=== PATIENT | female | born 1935 | race Caucasian/White ===

== ENCOUNTER 2017-02-16 20:06 | Emergency (ER) | payer OTHER ==
--- NOTE | ~2017-02-16 | CT71 ---
[facility] A Service of [facility] & [facility] RADIOLOGY TEXT RESULTS PATIENT: OMARI CONCEPCION LOCATION: [facility] : 34 UNIT #: [id number] AGE: [address]: Pedro Pablo Aggarwal MD SEX: F ORDER DR: [id number] [facility] [address] [place], [place] [address] [id number] E MR#: [id number] Acc #: [id number] NAME: OMARI CONCEPCION : 1935 SEX: F STUDY DATE/TIME: 02/16/2017 18:57 UNIT: [facility] ROOM: STUDY DESCRIPTION: CT Head Wo Contrast Attending Physician: Pedro Pablo Aggarwal M.D. Ordering Physician: Pedro Pablo Aggarwal M.D. Primary Care Physician: Lilia Calles Aprn [facility] MEDICAL IMAGING REPORT This report is preliminary unless electronic signature is present EXAM CT of the head, 02/16/2017 HISTORY Fall today 02/16/2017, right side head pain radiating down into neck. This CT exam was performed with one or more of the following radiation dose reduction techniques: automatic exposure control, adjustment of mA and/or kV according to patient size, and iterative reconstruction. FINDINGS CT head performed skull base through vertex without intravenous contrast. Comparison 06/09/2015. No intracranial hemorrhage or evidence of acute cortical ischemia. Extensive subcortical periventricular and deep white matter tract hypodensities likely reflecting sequelae of chronic microvascular ischemia. Similar appearance on prior examination. Midline structures are nondisplaced. No acute appearing basal ganglia abnormality. Ventricles, cisterns and sulci show mild to moderate generalized enlargement, slightly more pronounced than on the prior examination and consistent with generalized atrophy. No intra or extraaxial mass effect or abnormal intracranial fluid collection. Intraorbital soft tissues are unremarkable. Cavernous carotid arterial calcifications. Visualized paranasal sinuses and mastoid air cells are clear. No fracture. IMPRESSION 1. No acute abnormality seen in the brain. If the patient has ongoing neurologic symptoms, consider followup imaging. 2. Mild to moderate generalized atrophy. Slightly more pronounced than in 2014. 3. Periventricular and deep white matter tract probable sequelae of [facility] A Service of [facility] & [facility] RADIOLOGY TEXT RESULTS PATIENT: OMARI CONCEPCION LOCATION: [facility] #: [id number] : 34 UNIT #: [id number] AGE: [address]: Pedro Pablo Aggarwal MD SEX: F ORDER DR: chronic microvascular ischemia. Similar appearance on prior study. 4. Vascular calcifications. 5. No fracture. Dictated by... Kamaljit Krishnamurthy M.D. THIS IS AN ELECTRONICALLY VERIFIED REPORT Kamaljit Krishnamurthy M.D. at 02/17/2017 6:48 PM GIOVANA/jovon TD: 02/16/2017 23:15 JOB #: [id number] MEDICAL IMAGING REPORT Page 1 of 1 COPY
--- NOTE | ~2017-02-16 | CT52 ---
[facility] A Service of [facility] RADIOLOGY TEXT RESULTS PATIENT: OMARI CONCEPCION LOCATION: [facility] : 34 UNIT #: [id number] AGE: [address]: Pedro Pablo Aggarwal MD SEX: F ORDER DR: [id number] [facility] [address] [place], [place] [address] [id number] E MR#: [id number] Acc #: [id number] NAME: OMARI CONCEPCION : 1935 SEX: F STUDY DATE/TIME: 02/16/2017 18:59 UNIT: [facility] ROOM: STUDY DESCRIPTION: CT Cervical Spine Wo Cont Attending Physician: Pedro Pablo Aggarwal M.D. Ordering Physician: Pedro Pablo Aggarwal M.D. MEDICAL IMAGING REPORT This report is preliminary unless electronic signature is present EXAM CT cervical spine without contrast 02/16/2017 HISTORY 81-year-old female with neck pain status post fall today. COMPARISON STUDIES CT cervical spine 06/09/2015. TECHNIQUE Helical scan performed through the cervical spine without IV contrast. Coronal and sagittal reformatted images. This CT exam was performed with one or more of the following radiation dose reduction techniques: automatic exposure control, adjustment of mA and/or kV according to patient size, and iterative reconstruction. FINDINGS No evidence of acute fracture. There is mild degenerative anterolisthesis of C3 on C4 and C4 on C5, unchanged from the prior exam. Moderately advanced multilevel degenerative disc changes noted at C3-C4, C4-C5, C5-C6, C6-C7. Moderately advanced multilevel facet arthropathy. The findings are unchanged from prior examination. This produces mild central canal stenosis at multiple levels. Prevertebral soft tissues are normal. Atlantoaxial relationship is within normal limits. Cervicothoracic junction is unremarkable. Paravertebral soft tissues are unremarkable. Scanning through the lung apices is unremarkable. IMPRESSION 1. No acute cervical spine injury. 2. Advanced multilevel degenerative changes, detailed above. Findings not significantly changed from 06/09/2015. [facility] A Service of [facility] RADIOLOGY TEXT RESULTS PATIENT: OMARI CONCEPCION LOCATION: [facility] #: [id number] : 34 UNIT #: [id number] AGE: [address]: Pedro Pablo Aggarwal MD SEX: F ORDER DR: Dictated by... Solomon De La Fuente M.D. THIS IS AN ELECTRONICALLY VERIFIED REPORT Solomon De La Fuente M.D. at 02/17/2017 4:27 PM THOMAS/xiomara TD: 02/16/2017 22:59 JOB #: [id number] MEDICAL IMAGING REPORT Page 1 of 1 COPY
[~2017-02-16 20:06] MED LIST: ACETAMINOPHEN500 M2 PO; ALBUTEROL MININEB NEB; ALDACTONE PO; ALDACTONE25 MG PO; ALENDRONATE SOD70 MG PO; ALL DAY ALLERGY10 M3 PO; ALL DAY ALLERGY10 MG PO; ALLERGY10 M2 PO; ANTIVERT PO; ASPIRIN81 M2 PO; ASPIRIN81 MG PO; ATIVAN PO; B-121000 MC1 PO; B12 5,000 MCG1 EACH PO; BETAPACE80 MG PO; CALCIUM 600+D1 EAC4 PO; COUMADIN PO; COUMADIN10 MG PO; COUMADIN5 MG PO; CRESTOR PO; DILANTIN KAPSE100 MG PO; EXCEDRIN EXTRA1 TAB PO; FISH OIL 1,0001 CAP PO; FLONASE 0.05% N16 G1 INH; FLOVENT DI50 MCG/DIS INH; FOSAMAX PO; FUROSEMIDE40 MG PO; GABAPENTIN300 M2 PO; GABAPENTIN300 MG PO; HEART PILL; HYDROCODON-ACE1 EACH PO; IMDUR-ER60 M3 PO; IMDUR30 MG PO; IRON SUPPLEMENT1 TAB PO; KEPPRA500 M1 PO; KEPPRA500 M2 PO; LASIX PO; LASIX20 MG PO; LEVOTHROID100 MC1 PO; LEVOTHROID150 MCG PO; LEVOXYL150 MCG PO; LIPITOR40 MG PO; LOPRESSOR PO; LOPRESSOR100 MG PO; LORAZEPAM1 MG PO; MAG-OX 400400 M1 PO; METOPROLOL TAR100 MG PO; NEURONTIN PO; NIACIN500 M1 PO; NIASPAN1000 MG PO; NITROGLYCERIN0.4 MG SL; NITROSTAT0.4 MG SL; NORVASC2.5 MG PO; OMEPRAZOLE20 M2 PO; PHENYTOIN SODI100 M4 PO; PREDNISONE PO; PRILOSEC20 MG PO; REMERON15 MG PO; REQUIP0.5 MG PO; SENNA8.6 M2 PO; SORINE80 MG; SOTALOL AF80 MG PO; SYNTHROID PO; SYNTHROID0.15 MG PO; TOPAMAX PO; TOPAMAX50 MG PO; TRIAMCINOLONE AC1 GM EXT; VITAMIN B-121000 MCG PO; VITAMIN D50000 UNIT PO; ZOLOFT100 MG PO; ZOLOFT50 MG PO
== END 2017-02-16 20:53 | disposition home or self-care (01) ==
LOC: CED 20:06
DX: S09.90XA Unspecified injury of head, initial encounter (principal); I10 Essential (primary) hypertension; Z79.82 Long term (current) use of aspirin; Z79.899 Other long term (current) drug therapy; Z88.1 Allergy status to other antibiotic agents; W07.XXXA Fall from chair, initial encounter; Y92.009 Unspecified place in unspecified non-institutional (private) residence as the place of occurrence of the external cause
CPT/HCPCS: 70450; 72125; 99284

== ENCOUNTER 2017-05-03 14:10 | Emergency (ER) | payer OTHER ==
--- NOTE | ~2017-05-03 | CR71 ---
[facility] A Service of [facility] RADIOLOGY TEXT RESULTS PATIENT: OMARI CONCEPCION LOCATION: SED : 34 UNIT #: [id number] AGE: [address]: Rufino Esteves MD SEX: F ORDER DR: [id number] [address] [address] [id number] E MR#: [id number] Acc #: [id number] NAME: OMARI CONCEPCION : 1935 SEX: F STUDY DATE/TIME: 05/03/2017 15:00 UNIT: SED ROOM: STUDY DESCRIPTION: CR Chest Single View Attending Physician: Rufino Esteves M.D. Ordering Physician: Rufino Esteves M.D. Primary Care Physician: No Primary Care Physician MEDICAL IMAGING REPORT This report is preliminary unless electronic signature is present. EXAM AP view of the chest COMPARISON Two views of the chest dated June 09, 2015, March 23, 2015 and March 22, 2015. INDICATIONS An 81-year-old female with history of hypertension, CHF and COPD requiring oxygen. Patient fell at home yesterday. FINDINGS Allowing for differences in AP and PA technique, cardiomediastinal silhouette is likely stable with stable cardiomegaly. There is stable band-like scarring versus atelectasis or possibly trace loculated pleural effusion within the minor fissure. Changes of CABG again noted. No evidence of sternotomy dehiscence. There is tortuosity and/or folding of the thoracic aorta which appears grossly stable. There is mild calcification of the thoracic aorta. No evidence of pneumothorax, pleural effusion, acute airspace disease or pulmonary edema. Multiple healed right-sided rib fractures are again noted. Calcified granulomas in the right lung. . IMPRESSION 1. No acute radiographic abnormality of the chest. There is cardiomegaly without pulmonary edema or pleural effusion. 2. There is stable band-like atelectasis versus scar or possibly trace fluid within the minor fissure. Dictated by... Chung Bartlett M.D. [facility] A Service of [facility] RADIOLOGY TEXT RESULTS PATIENT: OMARI CONCEPCION LOCATION: SED : 34 UNIT #: [id number] AGE: [address]: Rufino Esteves MD SEX: F ORDER DR: THIS IS AN ELECTRONICALLY VERIFIED REPORT Chung Bartlett M.D. at 05/08/2017 1:56 PM JOSE/mele TD: 05/03/2017 22:26 JOB #: [id number] MEDICAL IMAGING REPORT Page 1 of 1
--- NOTE | ~2017-05-03 | CR206 ---
[facility] A Service of [facility] RADIOLOGY TEXT RESULTS PATIENT: OMARI CONCEPCION LOCATION: SED : 34 UNIT #: [id number] AGE: [address]: Rufino Esteves MD SEX: F ORDER DR: [id number] [address] [address] [id number] E MR#: [id number] Acc #: [id number] NAME: OMARI CONCEPCION : 1935 SEX: F STUDY DATE/TIME: 05/03/2017 15:00 UNIT: SED ROOM: STUDY DESCRIPTION: CR Pelvis 1 or 2 Views Attending Physician: Rufino Esteves M.D. Ordering Physician: Rufino Esteves M.D. Primary Care Physician: Primary Care Physician No MEDICAL IMAGING REPORT This report is preliminary unless electronic signature is present. EXAM AP view of the pelvis. COMPARISON CT abdomen and pelvis dated March 19, 2015. INDICATIONS 81-year-old female with tailbone pain after falling last night in the bathroom. FINDINGS Surgical clips are seen in the pelvis. There are bilateral pelvic calcifications most in keeping with phleboliths. Evaluation of the sacrum is markedly limited by overlapping bowel gas and stool. Similarly, the coccyx is limited in evaluation. Arterial calcification seen in the proximal thighs. Degenerative facet disease at L4-L5, more prominent on the right. IMPRESSION No evidence of acute fracture of the pelvis is seen. Please note that evaluation of the sacrum and coccyx is nondiagnostic due to overlapping bowel gas and stool. Lateral view of the sacrum and coccyx may be helpful, if clinically indicated. Dictated by... Chung Bartlett M.D. THIS IS AN ELECTRONICALLY VERIFIED REPORT Chung Bartlett M.D. at 05/08/2017 1:49 PM [facility] A Service of [facility] RADIOLOGY TEXT RESULTS PATIENT: OMARI CONCEPCION LOCATION: SED : 34 UNIT #: [id number] AGE: [address]: Rufino Esteves MD SEX: F ORDER DR: TD: 05/03/2017 22:30 JOB #: [id number] MEDICAL IMAGING REPORT Page 1 of 1
--- NOTE | ~2017-05-03 | CT71 ---
[facility] A Service [facility] RADIOLOGY TEXT RESULTS PATIENT: OMARI CONCEPCION LOCATION: SED : 34 UNIT #: [id number] AGE: [address]: Rufino Esteves MD SEX: F ORDER DR: [id number] [address] [address] [id number] E MR#: [id number] Acc #: [id number] NAME: OMARI CONCEPCION : 1935 SEX: F STUDY DATE/TIME: 05/03/2017 14:56 UNIT: SED ROOM: STUDY DESCRIPTION: CT Head Wo Contrast Attending Physician: Rfuino Esteves M.D. Ordering Physician: Rufino Esteves M.D. Primary Care Physician: No Primary Care Physician MEDICAL IMAGING REPORT This report is preliminary unless electronic signature is present. EXAM CT scan of the head without contrast. INDICATIONS Fall last night with head trauma. Patient fell in bathroom. Patient has bruising and swelling in that region. Evaluate for bleed. COMPARISON 02/16/2017 TECHNIQUE Unenhanced images were obtained through the brain. This CT exam was performed with one or more of the following radiation dose reduction techniques: automatic exposure control, adjustment of mA and/or kV according to patient size, and iterative reconstruction. FINDINGS There is generalized atrophy. There are no masses or extraaxial fluid collections. There is a small scalp hematoma in the right frontal region measuring less than a centimeter in thickness. There is no fracture. IMPRESSION 1. Small right frontal scalp hematoma. 2. Generalized atrophy. 3. Otherwise, normal. Dictated by... Gera Denny M.D. THIS IS AN ELECTRONICALLY VERIFIED REPORT [facility] A Service [facility] RADIOLOGY TEXT RESULTS PATIENT: OMARI CONCEPCION LOCATION: SED : 34 UNIT #: [id number] AGE: [address]: Ruifno Esteves MD SEX: F ORDER DR: Gera Denny M.D. at 05/04/2017 7:37 AM Kelsy TD: 05/03/2017 22:20 JOB #: [id number] MEDICAL IMAGING REPORT Page 1 of 1
--- NOTE | ~2017-05-03 | EKG ---
PATIENT: OMARI CONCEPCION UNIT #: [id number] Ventricular Rate: 66 BPM Atrial Rate: 66 BPM P-R Interval: 252 ms QRS Duration: 172 ms Q-T Interval: 450 ms QTC Calculation(Bezet): 471 ms P Graff: 51 degrees Calculated R Graff: -89 degrees Calculated T Graff: 25 degrees Diagnosis Line: Sinus rhythm with 1st degree A-V block Diagnosis Line: Possible Left atrial enlargement Diagnosis Line: Left axis deviation Diagnosis Line: Right bundle branch block Diagnosis Line: Abnormal ECG Diagnosis Line: When compared with ECG of 09-JUN-2015 23:13, Diagnosis Line: No significant change was found Diagnosis Line: Confirmed by LETA MAR MD ([id number]) on Diagnosis Line: 05/04/2017 12:56:42 PM INTERPRETING MD: ISABELA ZACARIAS
[2017-05-03 14:41] LABS: POC - CKMB 2.1 ng/mL (0.0-7.9)
[2017-05-03 14:42] LABS: POC - TROPONIN <0.05 ng/mL (<=0.05)
[2017-05-03 14:53] LABS: URINE SOURCE CLEAN CATCH
[2017-05-03 14:54] LABS: BASOPHIL% 0.7 % (0-2.5); EOSINOPHIL# 0.2 X10e3 (0-0.7); EOSINOPHIL% 2.8 % (0.0-7.0); HEMATOCRIT 41.3 % (35.0-45.0); HEMOGLOBIN 13.8 gm/dL (12.0-16.0); LYMPHOCYTE% 14.9 % (17.0-45.0); MEAN CELL VOLUME 82.8 FL (83-96); MEAN CORPUSCULAR HEMOGLOBIN 27.7 PG (28-34); MEAN CORPUSCULAR HGB CONC 33.5 g/dL (30-36); MEAN PLATELET VOLUME 7.1 FL (6.5-11.5); MONOCYTE# 0.6 X10e3 (0-1.0); MONOCYTE% 8.3 % (3.0-12.0); NEUTROPHIL% 73.3 % (40-75); PLATELET COUNT 228 X10e3 (140-420); RED BLOOD COUNT 4.99 X10e (3.90-5.30); RED CELL DISTRIBUTION WIDTH 14.9 % (11.0-15.5); WHITE BLOOD COUNT 6.9 X10e3 (4.0-10.5)
[2017-05-03 14:55] LABS: URINE APPEARANCE CLEAR; URINE BILIRUBIN NEG (NEG); URINE BLOOD NEG (NEG); URINE COLOR YELLOW; URINE GLUCOSE NEG (NORM); URINE KETONE NEG (NEG); URINE LEUKOCYTE ESTERASE 1+ (NEG); URINE NITRATE NEG (NEG); URINE PROTEIN NEG (NEG); URINE UROBILINOGEN 0.2 MG/DL (NORM)
[2017-05-03 14:57] LABS: DIFF IND NO
[2017-05-03 14:58] LABS: MICRO INDICATED? YES
[2017-05-03 15:04] LABS: ALBUMIN SERUM 4.4 g/dL (3.5-5.0); ALKALINE PHOSPHATASE 63 U/L (32-92); ALT (SGPT) 14 U/L (10-40); AST (SGOT) 21 U/L (10-42); BILIRUBIN,TOTAL 0.4 mg/dL (0.2-2.0); BLOOD UREA NITROGEN 14 mg/dL (9-23); CALCIUM SERUM 8.6 mg/dL (8.4-10.2); CARBON DIOXIDE 32 mmol/L (22-31); CHLORIDE 92 mmol/L (100-111); CREATININE SERUM 0.7 mg/dL (0.6-1.4); GLOM FILT RATE Estimated 80.7 mL/min (>60); GLUCOSE FASTING 71 mg/dL (70-110); POTASSIUM 3.8 mmol/L (3.5-5.1); PROTEIN TOTAL SERUM 7.2 g/dL (6.0-8.3); SODIUM 130 mmol/L (135-145)
[2017-05-03 15:12] LABS: BILIRUBIN, DIRECT <0.1 mg/dL (0.0-0.2); BILIRUBIN,INDIRECT 0.3 mg/dL (0.0-0.9)
[2017-05-03 15:24] LABS: CULTURE INDICATED? NO; URINE BACTERIA NEG (NEG); URINE RBC 0-2 /[HPF] (0-2); URINE WBC 0-2 /[HPF] (0-5)
== END 2017-05-03 16:33 | disposition home or self-care (01) ==
LOC: SED 14:10
PROVIDERS: Emergency Medicine
DX: S00.83XA Contusion of other part of head, initial encounter (principal); Z79.899 Other long term (current) drug therapy; Z79.82 Long term (current) use of aspirin; Z88.1 Allergy status to other antibiotic agents; W19.XXXA Unspecified fall, initial encounter; Y92.009 Unspecified place in unspecified non-institutional (private) residence as the place of occurrence of the external cause
CPT/HCPCS: 36415; 70450; 71010; 72170; 80048; 80076; 81003; 82553; 84484; 85025; 93005; 99284

== ENCOUNTER 2017-05-09 11:16 | Inpatient (IN) | payer OTHER ==
[~2017-05-09] VITALS: Ht 167.6 cm; Wt 61.2 kg
--- NOTE | ~2017-05-09 | DS ---
Unit #: [id number] #: [id number] Patient: OMARI CONCEPCION [id number] [address] [address] [id number] I MR#: [id number] NAME: OMARI CONCEPCION ROOM: 301 Age: 81 Sex: F Admission Date: 05/09/2017 : 1935 Discharge Date: 05/12/2017 Attending Physician: Lonnie Jeffries M.D. Primary Care Physician: No Primary Care Physician DISCHARGE SUMMARY ADMISSION DIAGNOSES 1. Weakness. 2. Recurrent falls. 3. Hyponatremia. DISCHARGE DIAGNOSES 1. Falls, questionable etiology. 2. Encephalopathy. 3. Hyponatremia with slow improvement. 4. Hypothyroidism. Medication dosage adjusted. Patient needs repeat thyroid profile in four to six weeks. DIAGNOSTIC STUDIES LABORATORY: WBC 9.3, hemoglobin 13.2, hematocrit 39.0, platelets 278,000. Sodium 132, potassium 4.7, chloride 87, CO2 39, glucose 136, BUN 12, creatinine 0.7, calcium 8.8, B12 1097, TSH 31.18, magnesium 1.5. IMAGING: Lumbar spine series, impression: Multilevel degenerative disc disease and facet arthropathy unchanged from CT 03/19/2015. Mild scalloping or depression of the superior endplate of L2, also unchanged and chronic. No acute fracture seen. Patient one view, impression: Underlying osteopenia with no definite pelvic or hip fracture seen. Chest with bilateral rib film, impression: CABG change with cardiomegaly, tortuous ectatic aorta. Slight decrease in bibasilar density, likely improving atelectasis in the lungs with no definite effusion or pneumothorax. No definite left rib fractures with an additional anterior to anterolateral subacute right seventh fracture with some with some callous formation. This is displaced and not clearly healed; however, subacute and older than five days old. Thoracic spine series, impression: Moderate compression deformity at T8, which is old. More subtle compression of the superior endplates of T3, T4, T6 and T7 of indeterminate age. No malalignment. CARDIOVASCULAR: Twelve-lead EKG; sinus rhythm with first degree AV block, possible left atrial enlargement, left axis deviation, right bundle-branch block. CONDITION Stable. Unit #: [id number] #: [id number] Patient: OMARI CONCEPCION DISPOSITION [facility]. DISCHARGE MEDICATIONS 1. Levothyroxine 0.1 mg p.o. daily q.a.m. 2. Imdur ER 60 mg p.o. q.a.m. 3. Nitroglycerin 0.4 mg sublingual q.5 minutes x3 p.r.n. chest pain. 4. Vitamin B12 1000 mcg p.o. daily. 5. Lopressor 100 mg p.o. b.i.d. 6. Furosemide 20 mg p.o. daily. 7. Alendronate sodium 70 mg p.o. weekly on Sundays. 8. Lortab 7.5/325 one p.o. q.6 h. p.r.n. moderate pain. Prescription written by Dr. Rodriguez, #20, no refills. 9. Prilosec 20 mg p.o. b.i.d. 10. Calcium carbonate 500 mg tab one p.o. daily. 11. Neurontin 300 mg p.o. daily. 12. Zoloft 100 mg p.o. daily. 13. Cetirizine hydrochloride capsule 10 mg p.o. q.a.m. DIET Healthy heart. DISCHARGE INSTRUCTIONS 1. Patient will be discharged to [facility] rehab. 2. She is to call and schedule a followup appointment with her primary physician for 7 to 10 days after discharge from the rehab facility. 3. She is to have a CBC, BMP and magnesium level drawn in the a.m. of 05/13/17 with any abnormal results called to the rehab physician at [facility] for further orders. HISTORY OF PRESENT ILLNESS Patient is an 81-year-old female who presented to [facility] on the date of admission from [facility] due to recurrent falls. The patient is noted to be a poor historian and history was obtained from the son who was at the bedside. The patient's sodium was decreased at 130 and multiple imaging studies were performed without evidence of acute fractures. Patient is admitted to the hospital for weakness, recurrent falls and hyponatremia. She was gently hydrated with IV fluids and then placed on fluid restriction. Patient's sodium is improved today at 132. Patient was also placed on fluid restriction which has been lifted. Lasix has been started. She has been evaluated by Dr. Jeffries and he had discharged her to [facility] where she has been accepted and a bed is available for transfer today. Dictated by... Tana Nieves A.P.R.N. for Zoey Heath/ashley TD: 05/12/2017 15:59 JOB #: [id number] Unit #: [id number] #: [id number] Patient: NATHANIEL CONCEPCIONINE DISCHARGE SUMMARY Page 1 of 1 X Tana Nieves APRN X DISCHARGE SUMMARY
--- NOTE | ~2017-05-09 | CR150 ---
[facility] A Service of [facility] RADIOLOGY TEXT RESULTS PATIENT: OMARI CONCEPCION LOCATION: [facility] : 34 UNIT #: [id number] AGE: [address]: Lonnie Jeffries MD SEX: F ORDER DR: [id number] [facility] [address] [place], [place] [address] [id number] I MR#: [id number] Acc #: [id number] NAME: OMARI CONCEPCION : 1935 SEX: F STUDY DATE/TIME: 05/09/2017 22:22 UNIT: [facility] PCU ROOM: [facility] STUDY DESCRIPTION: CR Hip Min 2 Views Lt Attending Physician: Lonnie Jeffries M.D. Ordering Physician: Ed Doctor [id number] [facility] Primary Care Physician: Primary Care Physician No MEDICAL IMAGING REPORT This report is preliminary unless electronic signature is present EXAM Hip left two-view. HISTORY Pain in left hip after a fall 5 days ago. COMMENT Frontal view of the pelvis and a frog-leg view of the left hip reviewed. There is a pelvis film from 2015 for comparison. There is degenerative change in the hips bilaterally consistent with osteoarthritis. There are surgical clips in the pelvis, new from prior study. Bowel gas overlies the sacrum and obscures it. Allowing for this no pelvic fracture is suspected. There are atherosclerotic vascular calcifications. Assessment left hip shows no acute fracture or dislocation. 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 Dictated by... Bernadette Salinas M.D. THIS IS AN ELECTRONICALLY VERIFIED REPORT Bernadette Salinas M.D. at 05/10/2017 11:00 AM EAMON/shelly TD: 05/10/2017 09:05 JOB #: [id number] MEDICAL IMAGING REPORT [facility] A Service of [facility] RADIOLOGY TEXT RESULTS PATIENT: OMARI CONCEPCION LOCATION: [facility] : 34 UNIT #: [id number] AGE: [address]: Lonnie Jeffries MD SEX: F ORDER DR: Page 1 of 1 COPY
--- NOTE | ~2017-05-09 | CR181 ---
[facility] A Service of [facility] RADIOLOGY TEXT RESULTS PATIENT: OMARI CONCEPCION LOCATION: [facility] 301-01 : 34 UNIT #: [id number] AGE: [address]: Lonnie Jeffries MD SEX: F ORDER DR: [id number] [facility] [address] [place], [place] [address] [id number] I MR#: [id number] Acc #: [id number] NAME: OMARI CONCEPCION : 1935 SEX: F STUDY DATE/TIME: 05/09/2017 12:33 UNIT: [address] ROOM: [facility] STUDY DESCRIPTION: CR Lumbar Spine 2 or 3 Views Attending Physician: Shaun Brunson M.D. Ordering Physician: Rufino Laura M.D. Primary Care Physician: Primary Care Physician No MEDICAL IMAGING REPORT This report is preliminary unless electronic signature is present EXAM Lumbar spine series 05/09/2017 1233 hours HISTORY Patient fell 5 days ago with low back pain. COMPARISON CT abdomen and pelvis 03/19/2015 with sagittal and coronal reconstructions. FINDINGS There are 5 aoe-ozb-ewryisb lumbar type vertebrae present. There is some scalloping of the superior endplate of L2, similar to prior CT and not acute. There is degenerative disc disease L5-S1, greater than L4-5, with lower lumbar facet arthropathy resulting in anterolisthesis of L5 on S1, measuring 10 mm, similar to prior CT scan. There is multilevel facet degenerative change. Limited views of the sacrum and sacroiliac joints demonstrate no definite fracture. IMPRESSION 1. There is multilevel degenerative disc disease and facet arthropathy resulting in grade I anterolisthesis of L4 on 5, unchanged from CT scan 03/19/2015. 2. There is mild scalloping or depression of the superior endplate of L2, also unchanged and chronic. No acute fracture seen. Dictated by... Arelis Gutiérrez M.D. THIS IS AN ELECTRONICALLY VERIFIED REPORT Arelis Gutiérrez M.D. at 05/10/2017 8:53 AM ROVERTOM/psc [facility] A Service of [facility] RADIOLOGY TEXT RESULTS PATIENT: OMARI CONCEPCION LOCATION: A 301-01 : 34 UNIT #: [id number] AGE: [address]: Lonnie Jeffries MD SEX: F ORDER DR: TD: 05/09/2017 19:56 JOB #: [id number] MEDICAL IMAGING REPORT Page 1 of 1 COPY
--- NOTE | ~2017-05-09 | CR243 ---
[facility] A Service of [facility] RADIOLOGY TEXT RESULTS PATIENT: OMARI CONCEPCION LOCATION: [facility] : 34 UNIT #: [id number] AGE: [address]: Rufino Esteves MD SEX: F ORDER DR: [id number] [facility] [address] [place], [place] [address] [id number] E MR#: [id number] Acc #: [id number] NAME: OMARI CONCEPCION : 1935 SEX: F STUDY DATE/TIME: 05/09/2017 UNIT: [facility] ROOM: STUDY DESCRIPTION: CR Thoracic Spine 3 Views Attending Physician: Rufino Esteves M.D. Ordering Physician: Rufino Esteves M.D. Primary Care Physician: No Primary Care Physician MEDICAL IMAGING REPORT This report is preliminary unless electronic signature is present EXAM Thoracic spine series 05/09/2017 1234 hours. HISTORY Patient fell 5 days ago with mid back pain and upper back pain since fall. COMPARISON Chest film 06/09/2015. FINDINGS The patient has moderate compression of T8, which is old. There is mild compression at T6, T7 of indeterminate age. There is some endplate concavity at T3 and T4 of indeterminate age. No medial rib fracture seen. IMPRESSION There is a moderate compression deformity at T8, which is old. There is more subtle compression of the superior endplates of T3, T4, T6 and T7 of indeterminate age. There is no malalignment. STAT * RESULT Dictated by... Arelis Gutiérrez M.D. THIS IS AN ELECTRONICALLY VERIFIED REPORT Arelis Gutiérrez M.D. at 05/09/2017 2:35 PM Elaine TD: 05/09/2017 13:41 JOB #: [id number] [facility] A Service of [facility] RADIOLOGY TEXT RESULTS PATIENT: OMARI CONCEPCION LOCATION: [facility] #: [id number] : 34 UNIT #: [id number] AGE: [address]: Rufino Esteves MD SEX: F ORDER DR: MEDICAL IMAGING REPORT Page 1 of 1 COPY
--- NOTE | ~2017-05-09 | CR209 ---
[facility] A Service of [facility] RADIOLOGY TEXT RESULTS PATIENT: OMARI CONCEPCION LOCATION: [facility] : 34 UNIT #: [id number] AGE: [address]: Rufino Esteves MD SEX: F ORDER DR: [id number] [facility] [address] [place], [place] [address] [id number] E MR#: [id number] Acc #: [id number] NAME: OMARI CONCEPCION : 1935 SEX: F STUDY DATE/TIME: 05/09/2017 UNIT: [facility] ROOM: STUDY DESCRIPTION: CR Ribs Malcolm 4 View W PA Ch Attending Physician: Rufino Esteves M.D. Ordering Physician: Rufino Esteves M.D. Primary Care Physician: No Primary Care Physician MEDICAL IMAGING REPORT This report is preliminary unless electronic signature is present EXAM Chest with bilateral rib films 05/09/2017 1238 hours. HISTORY Patient fell 5 days ago with bilateral ribs and spine pain. COMPARISON Chest x-rays 05/03/2017. FINDINGS Chest film demonstrates CABG change with cardiomegaly. Tortuous atherosclerotic aorta unchanged. There is linear density at both bases, decreased from prior study, likely atelectasis. There is no definite effusion or pneumothorax. AP and oblique views of the ribs are performed. There are old healed right posterior seventh and eighth ribs with a displaced subacute-appearing anterior right seventh rib fracture with some callous formation. This appears older than 5 days. No definite acute rib fracture is seen. Left ribs demonstrate no acute rib fracture. IMPRESSION 1. CABG change with cardiomegaly, tortuous ectatic aorta. There is slight decrease in bibasilar density, likely improving atelectasis in the lungs. There is no definite effusion or pneumothorax. 2. There is no definite left rib fracture. 3. There are old healed right posterior seventh and eighth rib fractures. There is an additional anterior to anterolateral subacute right seventh rib fracture with some callous formation. This is displaced and not clearly healed. It is, however, subacute and older than 5 [facility] A Service of [facility] RADIOLOGY TEXT RESULTS PATIENT: OMARI CONCEPCION LOCATION: [facility] : 34 UNIT #: [id number] AGE: [address]: Rufino Esteves MD SEX: F ORDER DR: days old. STAT * RESULT Dictated by... Arelis Gutiérrez M.D. THIS IS AN ELECTRONICALLY VERIFIED REPORT Arelis Gutiérrez M.D. at 05/09/2017 2:35 PM LYNETTE/johnny TD: 05/09/2017 13:49 JOB #: [id number] MEDICAL IMAGING REPORT Page 1 of 1 COPY
--- NOTE | ~2017-05-09 | CR206 ---
[facility] A Service of [facility] RADIOLOGY TEXT RESULTS PATIENT: OMARI CONCEPCION LOCATION: [facility] 301-01 : 34 UNIT #: [id number] AGE: [address]: Lonnie Jeffries MD SEX: F ORDER DR: [id number] [facility] [address] [place], [place] [address] [id number] I MR#: [id number] Acc #: [id number] NAME: OMARI CONCEPCION : 1935 SEX: F STUDY DATE/TIME: 05/09/2017 UNIT: [address] ROOM: [facility] STUDY DESCRIPTION: CR Pelvis 1 or 2 Views Attending Physician: Shaun Brunson M.D. Ordering Physician: [facility] MEDICAL IMAGING REPORT This report is preliminary unless electronic signature is present EXAM Pelvis one-view 05/09/2017 1230 hours HISTORY Patient fell 5 days ago with pelvic and right hip pain. COMPARISON 05/03/2017. FINDINGS Single AP view of the pelvis suggests osteopenia. No definite hip or pelvic fracture is seen. IMPRESSION There is underlying osteopenia. No definite pelvic or hip fracture seen. Dictated by... Arelis Gutiérrez M.D. THIS IS AN ELECTRONICALLY VERIFIED REPORT Arelis Gutiérrez M.D. at 05/10/2017 8:53 AM LYNETTE/xiomara TD: 05/09/2017 20:08 JOB #: [id number] MEDICAL IMAGING REPORT Page 1 of 1 COPY
--- NOTE | ~2017-05-09 | EKG ---
PATIENT: OMARI CONCEPCION UNIT #: [id number] Ventricular Rate: 180 BPM Atrial Rate: 202 BPM QRS Duration: 158 ms Q-T Interval: 280 ms QTC Calculation(Bezet): 484 ms Calculated R Leland: -91 degrees Calculated T Leland: 26 degrees Diagnosis Line: Wide QRS tachycardia Diagnosis Line: Right bundle branch block Diagnosis Line: Abnormal ECG Diagnosis Line: No previous ECGs available Diagnosis Line: Confirmed by LETA MAR MD ([id number]) on Diagnosis Line: 05/15/2017 8:52:30 AM INTERPRETING MD: ISABELA ZACARIAS
--- NOTE | ~2017-05-09 | HP ---
Unit #: [id number] #: [id number] Patient: OMARI CONCEPCION [id number] [address] [address] [id number] E MR#: [id number] NAME: OMARI CONCEPCION ROOM: Age: 81 Sex: F Admission Date: 05/09/2017 : 1935 Attending Physician: Rufino Laura M.D. Primary Care Physician: No Primary Care Physician HISTORY AND PHYSICAL CHIEF COMPLAINT Recurrent pain. HISTORY OF PRESENT ILLNESS The patient is an 81-year-old female with history of multiple medical problems including paroxysmal atrial fibrillation, coronary artery disease, hypertension, hyperlipidemia, COPD, chronic respiratory failure, hypothyroidism, seizures. Brought to the emergency room from [facility] with recurrent falls. The patient has been to [facility] multiple times and was discharged back to the assisted living [place] [facility] but brought here today with generalized weakness. The patient had last fall on and Monday. The patient had bruises above the eyes on the forehead secondary to the fall. The patient is a poor historian and the history is obtained by speaking to the patient's son at the bedside. The patient is being admitted for the above reasons. Denies any fever, chills, chest pain, nausea, vomiting, abdominal pain. PAST MEDICAL HISTORY 1. History of chronic respiratory failure on 2 L of nasal cannula. 2. COPD. 3. Paroxysmal atrial fibrillation on metoprolol. 4. Coronary artery disease. 5. Hypothyroidism. 6. Seizure disorder. 7. History of nonsustained ventricular tachycardia. 8. Pleural effusion. 9. Dysphagia. 10. Hypertension. 11. Hyperlipidemia. 12. Chronic back pain. 13. Obstructive sleep apnea. 14. Osteoarthritis. 15. B12 deficiency. PAST SURGICAL HISTORY 1. CABG. 2. EGD. 3. Eye surgery. 4. Total abdominal hysterectomy. 5. Cholecystectomy. 6. Appendectomy. SOCIAL HISTORY She quit smoking. There is no alcohol or illicit drug abuse. Unit #: [id number] #: [id number] Patient: OMARI CONCEPCION CODE STATUS Code is full code, per record. FAMILY HISTORY Notable for coronary artery disease. ALLERGIES Amoxicillin. HOME MEDICATIONS 1. Zoloft. 2. Nitroglycerin. 3. Alendronate. 4. Imdur. 5. Albuterol. 6. Aspirin. 7. Levoxyl. 8. Keppra. 9. Calcium. 10. Lopressor. 11. B12. 12. Lasix. 13. Aldactone. 14. Gabapentin. 15. Prilosec. 16. Senna. 17. Triamcinolone. 18. Acetaminophen. 19. Flonase nasal spray. REVIEW OF SYSTEMS Unable to obtain secondary to the patient unable to provide history and answer the questions. PHYSICAL EXAMINATION GENERAL: The patient is lying on the bed, not in acute distress. VITAL SIGNS: Temperature 97.6, pulse 76, respiratory rate 20, blood pressure 106/59, saturating 91% on room air. HEENT: Head positive for the bruises on the forehead. NECK: Supple. LUNGS: Decreased air entry at the bases. HEART: Regular rate and rhythm. ABDOMEN: Soft. Positive bowel sounds. No cyanosis. No clubbing. NEUROLOGIC: Patient is awake. No gross focal motor deficit. DIAGNOSTIC STUDIES LABORATORY: WBC 9.1, hemoglobin 12.1, hematocrit 36, platelets 213,000. PTT 30.5. Sodium 130, potassium 4.1, chloride 90, bicarbonate 33, glucose 93, BUN 13, creatinine 0.8. AST 13, ALT 9, albumin 3.5. UA shows trace leukocyte esterase. IMAGING: X-ray of the thoracic spine shows there is some moderate compression deformity at T8 which is old. There is a more subtle compression at the superior endplates at T3, T4, T6, and T7 of indeterminate age. There is no malalignment. X-ray of the rib shows CABG and is with cardiomegaly. Tortuous ectatic Unit #: [id number] #: [id number] Patient: OMARI CONCEPCION aorta. There is slight decrease in bibasilar density, likely atelectasis in the lungs. There is no definite occlusions or pneumothorax. There is no definite left rib fracture. There are old healed right posterior seventh and eighth rib fractures. There is an additional anterior to anterolateral subacute right seventh rib fracture with some callus formation. This is displaced and not clearly healed. It is, however, subacute and older than five days old. ASSESSMENT 1. Weakness. 2. Recurrent falls. 3. Hyponatremia. PLAN Plan to admit to observation with telemetry. Continue the gentle IV fluids with 50 mL/hr (1) and continue with cardiac diet and occupational therapy/physical therapy. I spoke to the social insurance adviser at the emergency room and recommended to admit to observation for residential placement. Further recommendations will follow. Dictated by Zoey Jansen TD: 05/09/2017 16:45 JOB #: [id number] HISTORY AND PHYSICAL Page 1 of 1 X ALEXANDRIA BRIONES MD X HISTORY AND PHYSICAL
--- NOTE | ~2017-05-09 | CT71 ---
[facility] A Service of [facility] RADIOLOGY TEXT RESULTS PATIENT: OMARI CONCEPCION LOCATION: [facility] 301-01 : 34 UNIT #: [id number] AGE: [address]: Lonnie Jeffries MD SEX: F ORDER DR: [id number] [facility] [address] [place], [place] [address] [id number] I MR#: [id number] Acc #: [id number] NAME: OMARI CONCEPCION : 1935 SEX: F STUDY DATE/TIME: 05/09/2017 13:05 UNIT: A U ROOM: [facility] STUDY DESCRIPTION: CT Head Wo Contrast Attending Physician: Shaun Brunson M.D. Ordering Physician: Rufino Laura M.D. Primary Care Physician: Primary Care Physician No MEDICAL IMAGING REPORT This report is preliminary unless electronic signature is present EXAM CT of the head without contrast INDICATION Seizures as well as bruising and swelling on the right forehead. Patient has a history of multiple falls, with most recent fall being May 05, 2017. TECHNIQUE Axial CT images were obtained from the vertex of the skull through skull base. No intravenous contrast material was administered. This CT exam was performed with one or more of the following radiation dose reduction techniques: Automatic exposure control, adjustment of mA and/or kV according to patient size, and iterative reconstruction. FINDINGS No acute intracranial hemorrhage is identified. There is diffuse cerebral atrophy with compensatory ventricular dilatation, which is in keeping with this patient's age of 81. There is no midline shift or mass effect. Patient does have periventricular and deep matter microangiopathic change, although I am not convinced I can see any focal areas of decreased attenuation. No calvarial fracture is identified. There is mild mucosal thickening seen within the ethmoid sinuses, mastoid air cells appear clear. There is atherosclerotic involvement of the cavernous carotid arteries. There is some soft tissue swelling seen within the right frontal region, which was also present on prior exam, from 1.6 x 0.5 cm. This actually has diminished in size when compared to the prior exam when it measured up to 2.9 x 0.6 cm. Again, no underlying calvarial fracture is seen. IMPRESSION 1. No acute intracranial hemorrhage identified. 2. Stable cerebral atrophy and microangiopathic disease. [facility] A Service of [facility] RADIOLOGY TEXT RESULTS PATIENT: OMARI CONCEPCION LOCATION: [facility] 301-01 : 34 UNIT #: [id number] AGE: [address]: Lonnie Jeffries MD SEX: F ORDER DR: 3. Soft tissue swelling overlying the right frontal bone without underlying calvarial fracture. Size of the hematoma has diminished when compared to the exam from May 03, 2017. Dictated by... Kelle Villegas M.D. THIS IS AN ELECTRONICALLY VERIFIED REPORT Kelle Villegas M.D. at 05/11/2017 5:10 PM AFF/psc TD: 05/09/2017 19:43 JOB #: [id number] MEDICAL IMAGING REPORT Page 1 of 1 COPY
[2017-05-09 13:54] LABS: URINE SOURCE CLEAN CATCH
[2017-05-09 14:05] LABS: BASOPHIL% 0.4 % (0-2.5); EOSINOPHIL# 0.3 X10e3 (0-0.7); EOSINOPHIL% 3.2 % (0.0-7.0); HEMOGLOBIN 12.1 gm/dL (12.0-16.0); LYMPHOCYTE# 0.9 X10e3 (1.0-3.5); LYMPHOCYTE% 10.2 % (17.0-45.0); MEAN CELL VOLUME 81.5 FL (83-96); MEAN CORPUSCULAR HEMOGLOBIN 27.3 PG (28-34); MEAN CORPUSCULAR HGB CONC 33.6 g/dL (30-36); MEAN PLATELET VOLUME 7.1 FL (6.5-11.5); MONOCYTE# 0.8 X10e3 (0-1.0); MONOCYTE% 9.1 % (3.0-12.0); NEUTROPHIL% 77.1 % (40-75); PLATELET COUNT 213 X10e3 (140-420); RED BLOOD COUNT 4.42 X10e (3.90-5.30); RED CELL DISTRIBUTION WIDTH 14.8 % (11.0-15.5); WHITE BLOOD COUNT 9.1 X10e3 (4.0-10.5)
[2017-05-09 14:07] LABS: DIFF IND NO
[2017-05-09 14:11] LABS: ALBUMIN SERUM 3.5 g/dL (3.5-5.0); BILIRUBIN, DIRECT 0.1 mg/dL (0.0-0.2); BILIRUBIN,INDIRECT 0.4 mg/dL (0.0-0.9); BILIRUBIN,TOTAL 0.5 mg/dL (0.2-2.0); BUN/CREATININE RATIO 16.25; CALCIUM SERUM 8.4 mg/dL (8.4-10.2); CREATININE SERUM 0.8 mg/dL (0.6-1.4); GLOM FILT RATE Estimated 68.7 mL/min (>60); POTASSIUM 4.1 mmol/L (3.5-5.1); PROTEIN TOTAL SERUM 6.5 g/dL (6.0-8.3)
[2017-05-09 14:18] LABS: URINE APPEARANCE CLEAR; URINE BILIRUBIN NEG (NEG); URINE BLOOD NEG (NEG); URINE COLOR YELLOW; URINE GLUCOSE NEG (NEG); URINE KETONE NEG (NEG); URINE LEUKOCYTE ESTERASE TRACE (NEG); URINE NITRATE NEG (NEG); URINE PROTEIN NEG (NEG); URINE UROBILINOGEN 0.2 MG/DL (NEG)
[2017-05-09 14:23] LABS: U HYALINE CASTS AUWI 0-2 /[LPF]; URBCS1 AUWI 0-2 /[HPF] (0-2); URINE BACTERIA AUWI NEG (NEGATIVE); URINE SQUAMOUS EPITHELIAL CELL NONE SEEN /[HPF]; UWBCS1 AUWI 0-2 (0-5)
[2017-05-09 14:25] LABS: CULTURE INDICATED? NO
[2017-05-09] MEDS ORDERED: PATIENT'S PHARMACY (17:09)
[2017-05-09] MEDS ORDERED: IMDUR PO (17:10)
[2017-05-09] MEDS ORDERED: GABAPENTIN300 MG PO (17:10)
[2017-05-09] MEDS ORDERED: LOPRESSOR PO (17:10)
[2017-05-09] MEDS ORDERED: ALENDRONATE SOD70 M1 PO (17:10)
[2017-05-09] MEDS ORDERED: ALDACTONE PO (17:10)
[2017-05-09] MEDS ORDERED: SYNTHROID PO (17:10)
[2017-05-09] MEDS ORDERED: NITROGLYGERIN0.4 MG PO (17:11)
[2017-05-09] MEDS ORDERED: ZOLOFT PO (17:11)
[2017-05-09] MEDS ORDERED: PRILOSEC PO (17:11)
[2017-05-09] MEDS ORDERED: B-121000 MC1 PO (17:11)
[2017-05-09] MEDS ORDERED: LASIX20 MG PO (17:11)
[2017-05-09] MEDS ORDERED: ALL DAY ALLERGY10 M3 PO (17:11)
[2017-05-09] MEDS ORDERED: CALCIUM500 M1 PO (17:11)
[2017-05-10 08:43] LABS: BASOPHIL% 0.5 % (0-2.5); EOSINOPHIL# 0.3 X10e3 (0-0.7); EOSINOPHIL% 4.1 % (0.0-7.0); HEMATOCRIT 42.1 % (35.0-45.0); HEMOGLOBIN 13.7 gm/dL (12.0-16.0); LYMPHOCYTE# 0.7 X10e3 (1.0-3.5); LYMPHOCYTE% 9.8 % (17.0-45.0); MEAN CELL VOLUME 82.3 FL (83-96); MEAN CORPUSCULAR HEMOGLOBIN 26.8 PG (28-34); MEAN CORPUSCULAR HGB CONC 32.6 g/dL (30-36); MONOCYTE# 0.6 X10e3 (0-1.0); MONOCYTE% 7.8 % (3.0-12.0); NEUTROPHIL# 5.8 X10e3 (1.5-7.1); NEUTROPHIL% 77.8 % (40-75); PLATELET COUNT 225 X10e3 (140-420); RED BLOOD COUNT 5.11 X10e (3.90-5.30); RED CELL DISTRIBUTION WIDTH 14.4 % (11.0-15.5); WHITE BLOOD COUNT 7.4 X10e3 (4.0-10.5)
[2017-05-10 08:55] LABS: DIFF IND NO
[2017-05-10 09:15] LABS: CALCIUM SERUM 8.7 mg/dL (8.4-10.2); CREATININE SERUM 0.6 mg/dL (0.6-1.4); GLOM FILT RATE Estimated 84.9 mL/min (>60); POTASSIUM 4.4 mmol/L (3.5-5.1)
[2017-05-11 06:15] LABS: CALCIUM SERUM 9.4 mg/dL (8.4-10.2); CREATININE SERUM 0.7 mg/dL (0.6-1.4); GLOM FILT RATE Estimated 80.7 mL/min (>60); POTASSIUM 4.4 mmol/L (3.5-5.1)
[2017-05-12 01:11] LABS: HEMATOCRIT 39.9 % (35.0-45.0); HEMOGLOBIN 13.1 gm/dL (12.0-16.0); MEAN CELL VOLUME 82.6 FL (83-96); MEAN CORPUSCULAR HEMOGLOBIN 27.2 PG (28-34); MEAN CORPUSCULAR HGB CONC 32.9 g/dL (30-36); MEAN PLATELET VOLUME 6.8 FL (6.5-11.5); RED BLOOD COUNT 4.82 X10e (3.90-5.30); RED CELL DISTRIBUTION WIDTH 14.3 % (11.0-15.5); WHITE BLOOD COUNT 10.9 X10e3 (4.0-10.5)
[2017-05-12 01:32] LABS: BUN/CREATININE RATIO 23.33; CALCIUM SERUM 9.3 mg/dL (8.4-10.2); CREATININE SERUM 0.6 mg/dL (0.6-1.4); GLOM FILT RATE Estimated 84.9 mL/min (>60); MAGNESIUM 1.5 mg/dL (1.6-3.0); POTASSIUM 4.5 mmol/L (3.5-5.1)
[2017-05-12 09:53] LABS: HEMOGLOBIN 13.2 gm/dL (12.0-16.0); MEAN CELL VOLUME 81.3 FL (83-96); MEAN CORPUSCULAR HEMOGLOBIN 27.5 PG (28-34); MEAN CORPUSCULAR HGB CONC 33.9 g/dL (30-36); MEAN PLATELET VOLUME 7.1 FL (6.5-11.5); RED BLOOD COUNT 4.8 X10e (3.90-5.30); RED CELL DISTRIBUTION WIDTH 13.9 % (11.0-15.5); WHITE BLOOD COUNT 9.3 X10e3 (4.0-10.5)
[2017-05-12 10:17] LABS: BUN/CREATININE RATIO 17.14; CALCIUM SERUM 8.8 mg/dL (8.4-10.2); CREATININE SERUM 0.7 mg/dL (0.6-1.4); GLOM FILT RATE Estimated 80.7 mL/min (>60); POTASSIUM 4.7 mmol/L (3.5-5.1)
[2017-05-12 11:11] LABS: %MB 4.2 % (0.0-4.0); MB 3.5 ng/ml
== END 2017-05-12 21:00 | DRG 640 ==
LOC: CED 11:16 → C3A PCU 15:55 → CED 15:55 → CEDOF 15:55 → C3A PCU 15:55 → CED 17:48 → CEDOF 17:48 → C3A PCU 17:49 → CEDOF 17:49 → C3A PCU 05-10 07:28
PROVIDERS: Emergency Medicine; Internal Medicine
DX: E87.1 Hypo-osmolality and hyponatremia (principal); G93.40 Encephalopathy, unspecified; J96.10 Chronic respiratory failure, unspecified whether with hypoxia or hypercapnia; I48.0 Paroxysmal atrial fibrillation; E03.9 Hypothyroidism, unspecified; I10 Essential (primary) hypertension; E78.5 Hyperlipidemia, unspecified; J44.9 Chronic obstructive pulmonary disease, unspecified; S00.83XA Contusion of other part of head, initial encounter; W19.XXXA Unspecified fall, initial encounter; Z91.81 History of falling; E83.42 Hypomagnesemia; Z95.1 Presence of aortocoronary bypass graft; Z90.49 Acquired absence of other specified parts of digestive tract; Z90.710 Acquired absence of both cervix and uterus; Z82.49 Family history of ischemic heart disease and other diseases of the circulatory system; Z87.891 Personal history of nicotine dependence; Z88.1 Allergy status to other antibiotic agents
CPT/HCPCS: 36415; 70450; 71111; 72072; 72100; 72170; 73502; 80048; 80076; 81003; 82550; 82553; 82607; 83735; 84443; 84484; 85025; 85027; 85730; 93005; 94760; 97162; 97166; 97530; 99285; G8978-GP; G8979-GP; G8987-GO; G8988-GO; J2270; J2405; J3475; J3490

== ENCOUNTER → 2017-05-17 | Outpatient (CLI) | payer OTHER ==
[~2017-05-17] MED LIST changes: +ALENDRONATE SOD70 M1 PO; +CALCIUM500 M1 PO; +IMDUR PO; +NITROGLYGERIN0.4 MG PO; +PATIENT'S PHARMACY; +PRILOSEC PO; +ZOLOFT PO
--- NOTE | ~2017-05-17 | CT71 ---
[facility] A Service of [facility] RADIOLOGY TEXT RESULTS PATIENT: OMARI CONCEPCION LOCATION: [facility] : 34 UNIT #: [id number] AGE: [address]: JULES BRADY SEX: F ORDER DR: [id number] [facility] [address] [place], [place] [address] [id number] O MR#: [id number] Acc #: [id number] NAME: OMARI CONCEPCION : 1935 SEX: F STUDY DATE/TIME: 05/17/2017 8:08 UNIT: [facility] ROOM: STUDY DESCRIPTION: CT Head Wo Contrast Attending Physician: Lety Brady M.D. Referring Physician: Leyt Brady M.D. Ordering Physician: Lety Brady M.D. Primary Care Physician: No Primary Care Physician MEDICAL IMAGING REPORT This report is preliminary unless electronic signature is present EXAM Head CT without contrast, 05/17/2017. PROCEDURE Axial unenhanced head CT. This CT exam was performed with one or more of the following radiation dose reduction techniques: automatic exposure control, adjustment of mA and/or kV according to patient size, and iterative reconstruction. COMPARISON STUDIES Prior head CT dated 05/09/2017. CLINICAL HISTORY Multiple falls over the past 10 days including 4 falls in the last 3 days. Healing bruise over right eye with persistent headache and unsteady gait for about 10 days. FINDINGS There is no intracranial hemorrhage. There is no mass or hydrocephalus or extraaxial fluid collection. Right frontal scalp soft tissue swelling has nearly completely resolved. The extracranial soft tissues are otherwise unremarkable and the skull base and calvaria are unremarkable except for advanced degenerative change in the right temporomandibular joint which is stable. IMPRESSION Redemonstrated chronic small vessel change and volume loss, no acute intracranial abnormality. No new abnormality when compared to 05/09/2017. [facility] A Service of [facility] RADIOLOGY TEXT RESULTS PATIENT: OMARI CONCEPCION LOCATION: [facility] EDT : 34 UNIT #: [id number] AGE: [address]: JULES BRADY SEX: F ORDER DR: Dictated by... Solis Gagnon M.D. THIS IS AN ELECTRONICALLY VERIFIED REPORT Solis Gagnon M.D. at 05/18/2017 11:49 AM TEV/nickolasw TD: 05/17/2017 12:53 JOB #: [id number] MEDICAL IMAGING REPORT Page 1 of 1 COPY
== END | disposition home or self-care (01) ==
LOC: CMRI 07:00 → CCAT 07:46 → CMRI 08:40
DX: R41.0 Disorientation, unspecified (principal); R44.3 Hallucinations, unspecified; G45.9 Transient cerebral ischemic attack, unspecified
CPT/HCPCS: 70450